=== PATIENT | female | born 1990 ===

== ENCOUNTER 2017-03-28 15:51 | Emergency (ER) | payer MEDICAID ==
[2017-03-28 15:52] VITALS: BMI 23.3
[2017-03-28 17:16] LABS: RBC URINE 1 /hpf (0-3); URINE BACTERIA RARE (<OCC); URINE BILIRUBIN NEGATIVE (NEGATIVE); URINE BLOOD NEGATIVE (NEGATIVE); URINE COLOR Straw (YELLOW); URINE GLUCOSE (UA) NORMAL (Normal); URINE KETONE NEGATIVE (NEGATIVE); URINE LEUKOCYTE ESTERASE NEG Leu/uL (Negative); URINE PROTEIN NEGATIVE (NEGATIVE); URINE UROBILINOGEN NORMAL mg/dL (0.2-1.0); WBC URINE 1 /hpf (0-5)
[2017-03-28 17:42] LABS: BASO % 0.5 % (0.0-2.0); EOS # 0.1 K/uL (0.0-0.7); EOS % 1.3 % (0.0-4.0); HEMATOCRIT 38.5 % (34.0-47.0); LYMPH # 2.8 K/uL (1.0-4.3); LYMPH % 41.5 % (20.0-40.0); MEAN CELL VOLUME 91.7 fL (81.0-99.0); MEAN CORPUSCULAR HEMOGLOBIN 31.1 pg (27.0-31.0); MEAN CORPUSCULAR HGB CONC 33.9 g/dL (33.0-37.0); MEAN PLATELET VOLUME 8.8 fL (7.2-11.7); MONO # 0.6 K/uL (0.0-0.8); MONO % 8.9 % (0.0-10.0); NRBC % 0.1 % (0.0-2.0); RED CELL DISTRIBUTION WIDTH 12.8 % (11.5-14.5); WHITE BLOOD COUNT 6.7 K/uL (4.8-10.8)
[2017-03-28 18:16] LABS: CHLORIDE 108 mmol/L (98-107); POTASSIUM 3.8 mmol/L (3.6-5.2); SODIUM 139 mmol/L (132-148)
[2017-03-28 18:18] LABS: BILIRUBIN,TOTAL 0.8 mg/dL (0.2-1.3); GFR AFRICAN-AMERICAN > 60
[2017-03-28 18:19] LABS: ALB/GLOB RATIO 1.3 (1.0-2.1); ALKALINE PHOSPHATASE 43 U/L (38-126); ALT/SGPT 13 U/L (9-52); AST/SGOT 23 U/L (14-36); BLOOD UREA NITROGEN 8 mg/dL (7-17); CALCIUM 8.9 mg/dl (8.6-10.4); CARBON DIOXIDE 21 mmol/L (22-30); GLUCOSE,RANDOM 90 mg/dL (65-105); TOTAL PROTEIN 7.5 g/dL (6.3-8.3)
--- NOTE | 2017-03-28 20:21 | US ---
EXAM: US First Trimester, Transabdominal US , Transvaginal CLINICAL HISTORY: 26 years old, female; Pain; complicated by abdominal or pelvic pain; Other: Not specified; Gestational age or lmp: [id number]; ; Prior surgery; Surgery type: ; Additional info: Pain. R/O ectopic. TECHNIQUE: Real-time transabdominal and transvaginal obstetrical ultrasound of the maternal pelvis and a first trimester with image documentation. Transvaginal imaging was used for better evaluation of the fetus and adnexa. COMPARISON: No relevant prior studies available. FINDINGS: Gestation: Small intrauterine gestational sac. Small yolk sac. No pole visualized. Uterus/cervix: Uterus measures 8.6 x 4.9 x 5.4 CM. No myometrial mass. Ovaries: Right ovary measures 3 x 2 x 2.5 CM. Left ovary measures 2.9 x 1.6 x 3.3 CM. No mass. Free fluid: Trace free fluid. IMPRESSION: 1. Ultrasound findings most consistent with an early intrauterine . Recommend clinical followup. 2. No adnexal masses.
[2017-03-28 21:10] VITALS: BP 103/69; PULSE 82; RESP 18; TEMP 98.6
[2017-03-28 21:12] VITALS: O2SAT 98
--- NOTE | 2017-03-28 21:12 | C.PDOC ---
Time Seen by Provider: 03/28/17 16:32 Chief Complaint (Nursing): Abdominal Pain History Per: Patient Onset/Duration Of Symptoms: Days (few), Intermittent Episodes Current Symptoms Are (Timing): Still Present Context: Other (Positive test at home) Severity: Moderate Location Of Pain/Discomfort: Suprapubic Quality Of Discomfort: Cramping Exacerbating Factors: None Alleviating Factors: None Additional History Per: Prior Records Abnormal Vaginal Bleeding: No Last Menstral Period: 02/19/2017 Past Medical History Reviewed: Historical Data, Nursing Documentation, Vital Signs Vital Signs: Last Vital Signs Temp 99.4 F 03/28/17 15:58 Pulse 67 03/28/17 15:58 Resp 20 03/28/17 15:58 BP 109/69 03/28/17 15:58 Pulse Ox 98 03/28/17 15:58 - Medical History PMH: Anemia ("IRON INFUSIONS DONE IN THE PAST"), Anxiety (NO MEDS.), Gastritis Surgical History: Endoscopy, - [facility] Procedures D & C NEC (12/17/13) DESTRUCT ABD WALL LESION (08/11/14) LAPAROSCOPY (12/17/13) Family History: States: Unknown Family Hx - Social History Hx Tobacco Use: No Hx Alcohol Use: No Hx Substance Use: No - Immunization History Hx Tetanus Toxoid Vaccination: No Hx Influenza Vaccination: No Hx Pneumococcal Vaccination: No Review Of Systems Except As Marked, All Systems Reviewed And Found Negative. Constitutional: Negative for: Fever, Weakness Cardiovascular: Negative for: Chest Pain Respiratory: Negative for: Shortness of Breath Gastrointestinal: Negative for: Vomiting Genitourinary: Positive for: Pelvic Pain. Negative for: Dysuria, Vaginal Discharge Musculoskeletal: Negative for: Neck Pain, Back Pain Skin: Negative for: Rash Neurological: Negative for: Weakness, Numbness, Seizures, Altered Mental Status Physical Exam - Physical Exam Appears: Non-toxic, No Acute Distress Skin: Normal Color, Warm, Dry, No Rash Head: Atraumatic, Normacephalic Eye(s): bilateral: PERRL, EOMI Neck: Normal ROM, Supple Cardiovascular: Rhythm Regular Respiratory: Normal Breath Sounds, No Accessory Muscle Use Gastrointestinal/Abdominal: Soft, No Tenderness Back: No CVA Tenderness Extremity: Normal ROM, No Deformity Neurological/Psych: Oriented x3, Normal Motor, Normal Sensation ED Course And Treatment - Laboratory Results Result Diagrams: 03/28/17 17:39 03/28/17 17:39 Lab Interpretation: No Acute Changes O2 Sat by Pulse Oximetry: 98 Pulse Ox Interpretation: Normal - CT Scan/US Pelvic US Other Rad Studies (CT/US): Read By Radiologist, Radiology Report Reviewed CT/US Interpretation: IMPRESSION: 1. Ultrasound findings most consistent with an early intrauterine . Recommend clinical followup. 2. No adnexal masses. Reassessment Condition: Improved Disposition Counseled Patient/Family Regarding: Studies Performed, Diagnosis, Need For Followup - Disposition Disposition: HOME/ ROUTINE Disposition Time: 21:13 Condition: STABLE Additional Instructions: Take Tylenol as needed for pain. Follow up an Marketing Research Analyst doctor for further evaluation and treatment. Return to the ER if you develop heavy bleeding, dizziness, fever, vomiting, worsening of symptoms or if you have any other concerns. Instructions: Abdominal Pain in (ED) - Clinical Impression Clinical Impression: Abdominal pain during in first trimester
== END 2017-03-28 21:18 | disposition home or self-care (01) ==
LOC: C.ER 15:51
DX: O26.891 Other specified pregnancy related conditions, first trimester (principal); R10.2 Pelvic and perineal pain; Z3A.00 Weeks of gestation of pregnancy not specified

== ENCOUNTER 2017-09-07 16:31 | Emergency (ER) | payer MEDICAID ==
[2017-09-07 16:38] VITALS: BMI 26.4
[2017-09-07] MEDS ORDERED: Lactated Ringer's 1,000 ML IV SCH ×2 (16:45→17:06)
[2017-09-07] MEDS ORDERED: Dextrose 5%/Lactated Ringer's 1,000 ML IV SCH (16:45)
[2017-09-07 17:05] LABS: BASO % 0.3 % (0.0-2.0); EOS % 0.1 % (0.0-4.0); HEMATOCRIT 35.8 % (34.0-47.0); LYMPH # 1.2 K/uL (1.0-4.3); MEAN CELL VOLUME 92.4 fL (81.0-99.0); MEAN CORPUSCULAR HEMOGLOBIN 31.6 pg (27.0-31.0); MEAN CORPUSCULAR HGB CONC 34.2 g/dL (33.0-37.0); MEAN PLATELET VOLUME 8.6 fL (7.2-11.7); MONO # 1.1 K/uL (0.0-0.8); MONO % 7.6 % (0.0-10.0); PLATELET COUNT 238 K/uL (130-400); RED CELL DISTRIBUTION WIDTH 12.5 % (11.5-14.5)
[2017-09-07 17:09] LABS: RBC URINE 86 /hpf (0-3); URINE BACTERIA OCC (<OCC); URINE BILIRUBIN NEGATIVE (NEGATIVE); URINE BLOOD 2+ (NEGATIVE); URINE COLOR Yellow (YELLOW); URINE GLUCOSE (UA) NORMAL (Normal); URINE KETONE NEGATIVE (NEGATIVE); URINE LEUKOCYTE ESTERASE 3+ Leu/uL (Negative); URINE PROTEIN NEGATIVE (NEGATIVE); URINE UROBILINOGEN NORMAL mg/dL (0.2-1.0); WBC URINE 33 /hpf (0-5)
[2017-09-07 17:10] LABS: ALB/GLOB RATIO 1.2 (1.0-2.1); ALKALINE PHOSPHATASE 80 U/L (38-126); ALT/SGPT 27 U/L (9-52); AST/SGOT 16 U/L (14-36); BILIRUBIN,TOTAL 0.9 mg/dL (0.2-1.3); BLOOD UREA NITROGEN 7 mg/dL (7-17); CALCIUM 8.5 mg/dl (8.6-10.4); CARBON DIOXIDE 21 mmol/L (22-30); CHLORIDE 102 mmol/L (98-107); GFR AFRICAN-AMERICAN > 60; GLUCOSE,RANDOM 74 mg/dL (65-105); POTASSIUM 3.5 mmol/L (3.6-5.2); SODIUM 131 mmol/L (132-148); TOTAL PROTEIN 6.9 g/dL (6.3-8.3)
[2017-09-07] MEDS ORDERED: Betamethasone Soluspan 30 mg/5mL Inj Susp IM STA (17:50)
[2017-09-07] MEDS ORDERED: Magnesium Sulfate 4 gm/100 ml 4 GM/100 ML BAG IVPB ONE (17:51)
[2017-09-07] MEDS ORDERED: Penicillin G Potassium 5 MU in Dextrose 5% In Water 50 ML IV ONE (17:52)
--- NOTE | 2017-09-07 18:00 | OBADHP ---
Datetime: 09/07/2017 17:51 Admit Comment, IP Provider: at 28weeks came with c/o ctxs started in am irrg, 05/25,no vb, lof,+ fm, no fever.no dysuria.no sex. obhx 1 x c/s [facility] den med pn all nkda psh c/s soch martínez ve closed at the time of arrival 1800 /-3 changed from previoys pt got ivf and procardia. still ctxs started mgso4 and betemethasone and pen [facility] called for transfer. spoke to Dr Bass agrees with transfer. r/a/b discussed with pateints.pt agrees. ambulabce caled for transfer. Pelvic Type - PN: Adequate Extremities - PN: Normal Abdomen - PN: Normal Back - PN: Normal Breast - PN: Not Done Lungs - PN: Normal Heart - PN: Normal Thyroid - PN: Not Done Neurologic - PN: Normal HEENT - PN: Normal General - PN: Normal FHR - Baseline A Provider: 170 Contraction Comments Provider: q1-4 Comments, ACOG Physical Exam: gravid,non tender ext no edemano calf ten ve /-3 IP Hx Assessment: The History has been Reviewed and is Current Vital Signs Provider: Reviewed; Within Normal Limits IP Chief Complaint: Uterine contractions NICHD Variability Prov Fetus A: Moderate 6-25bpm NICHD Decel Fetus A IP Provider: None Dilatation, Provider: 0 Effacement, Provider: 50 Station, Provider: -3 Genitourinary Exam: Normal DTRs - PN: Normal EGA AdmitDate IP: 28.4 IP Adm Impression: , intrauterine
--- NOTE | 2017-09-07 18:12 | OBHP ---
Datetime: 09/07/2017 17:51 Admit Comment, IP Provider: at 28weeks came with c/o ctxs started in am irrg, 05/25,no vb, lof,+ fm, no fever.no dysuria.no sex.pt was seen by her dr whitfield yesterday obhx 1 x c/s pmh den med pn all nkda psh c/s soch martínez ve closed at the time of arrival 1800 /3 changed from previoys pt got ivf and procardia. still ctxs started mgso4 and betemethasone and [facility] called for transfer. spoke to Dr Bass agrees with transfer. r/a/b discussed with pateints.pt agrees. ambuljenifer conner for transfer.
[2017-09-07 18:53] LABS: NEUTROPHIL 86 % (50-75); TOTAL CELLS COUNTED 100
[2017-09-07] MEDS ORDERED: cefTRIAXone 2 GM in Sodium Chloride 0.9% 50 ML IVPB ONE (19:00)
[2017-09-07 22:53] VITALS: BP 114/72; PULSE 123; RESP 18; TEMP 98; O2SAT 99
== END 2017-09-07 18:10 | disposition short-term general hospital (02) ==
LOC: C.EROB 16:31
DX: O47.03 False labor before 37 completed weeks of gestation, third trimester (principal); Z3A.28 28 weeks gestation of pregnancy
CPT/HCPCS: 80053; 81001; 85025; 96361; 96372; 96374; 99283; J0702; J2540; J7120

== ENCOUNTER 2018-03-16 08:15 | Day surgery (SDC) | payer OTHER ==
[2018-03-16] MEDS ORDERED: Morphine 10 mg/5 ml Oral Soln PO PRN (08:22)
[2018-03-16] MEDS ORDERED: Dextrose 5%/0.45% NS 1,000 ML IV SCH (08:30)
[2018-03-16] MEDS ORDERED: ceFAZolin 1 gm in NS 1 GM/100 ML BAG IVPB ONE (09:02)
[2018-03-16] MEDS ORDERED: Sodium Chloride 0.9% 500 ML IV ONE ×2 (09:10→10:15)
[2018-03-16] MEDS ORDERED: Propofol 10 mg/ml Inj (20 ML) ONE (09:16)
[2018-03-16] MEDS ORDERED: Midazolam 2 MG/2 ML VIAL ONE (09:16)
[2018-03-16] MEDS ORDERED: Succinylcholine Chloride 20 mg/ml Syr (5 ml) IV ONE (09:22)
[2018-03-16] MEDS ORDERED: HYDROmorphone 0.5 mg/0.5 ml ISec IVP PRN (09:49)
[2018-03-16 10:15] VITALS: O2SAT 100
[2018-03-16 11:20] VITALS: RESP 18
[2018-03-16 12:40] VITALS: BP 96/58; PULSE 75; TEMP 97.8
--- NOTE | 2018-03-16 21:10 | OP ---
PROCEDURE DATE: 03/16/2018 PREOPERATIVE DIAGNOSIS: Chronic tonsillitis. POSTOPERATIVE DIAGNOSIS: Chronic tonsillitis. PROCEDURE: Tonsillectomy. SURGEON: Cheng Castillo MD SIGNIFICANT FINDINGS: Chronically infected tonsils. DESCRIPTION OF PROCEDURE: The patient was brought into the room, placed in supine position. Anesthesia was initiated through an ET tube. The patient was draped in the usual manner. Mouth gag was placed in the oral cavity, opened and suspended on the Oleary manager line the usual manner. The right tonsil was grabbed and pulled medially. Incision was made in the anterior tonsillar pillar using a plasma knife. Dissections were done between tonsil and tonsillar fossa using a plasma knife until the tonsil was removed. Bleeding was controlled using plasma knife. Next, the other tonsil was grabbed and pulled medially. Incision was made in the anterior tonsillar pillar using plasma knife. Dissections were done between tonsil and tonsillar fossa using a plasma knife until the tonsil was removed. Bleeding was controlled using plasma knife. Both tonsillar beds were rubbed vigorously with a plasma knife wand. No bleeding was noted. Mouth gag was let down for 30 seconds, put back up, no bleeding was noted. The mouth gag was taken out and removed. The patient was taken off anesthesia and taken to the recovery room in a stable manner. Cheng Castillo MD
== END 2018-03-16 12:20 | disposition home or self-care (01) ==
LOC: C.SDS 08:15
PROVIDERS: ATTEND Otolaryngology
DX: J35.01 Chronic tonsillitis (principal)
CPT/HCPCS: 42826; 88304; J0690; J1170; J2250; J2405; J2704; J3010; J7030

== ENCOUNTER 2018-07-14 19:34 | Emergency (ER) | payer OTHER ==
[2018-07-14 19:35] VITALS: BMI 26.4
[2018-07-14 20:19] VITALS: BP 107/72; PULSE 63; RESP 16; TEMP 98.8; O2SAT 100
[2018-07-14] MEDS ORDERED: cefTRIAXone (Rocephin) 250 mg Inj IM STA (21:00)
[2018-07-14 21:02] LABS: HCG,QUALITATIVE URINE NEGATIVE (NEGATIVE)
[2018-07-14 21:03] LABS: SQUAMOUS EPITHIAL 3 /hpf (0-5); URINE BILIRUBIN NEGATIVE (NEGATIVE); URINE BLOOD NEGATIVE (NEGATIVE); URINE CLARITY Clear (Clear); URINE COLOR Yellow (YELLOW); URINE GLUCOSE (UA) NORMAL (Normal); URINE LEUKOCYTE ESTERASE NEG Leu/uL (Negative); URINE PROTEIN NEGATIVE (NEGATIVE); URINE UROBILINOGEN NORMAL mg/dL (0.2-1.0)
--- NOTE | 2018-07-14 21:29 | C.PDOC ---
History Of Present Illness 28 yo female c/o vaginal itching and discharge for one week. (+) pelvic cramping occasionally. Denies dysuria, urinary frequency, fever, back pain, n/v, abdominal pain, or change in BM. Pt admit to being sexually active though notes she uses condoms and has no new partners. (+) h/o chlamydia and herpes . She has tried Monistat x4 without relief- notes "it makes it worse". Time Seen by Provider: 07/14/18 20:19 Chief Complaint (Nursing): Female Genitourinary History Per: Patient History/Exam Limitations: no limitations Onset/Duration Of Symptoms: Days Current Symptoms Are (Timing): Still Present Past Medical History Vital Signs: Last Vital Signs Temp 98.8 F 07/14/18 20:13 Pulse 63 07/14/18 20:13 Resp 16 07/14/18 20:13 BP 107/72 07/14/18 20:13 Pulse Ox 100 07/14/18 20:13 - Medical History PMH: Anemia ("IRON INFUSIONS DONE IN THE PAST"), Gastritis Comment Only: Anxiety (NO MEDS.) Surgical History: Endoscopy, Tonsillectomy, - [facility] Procedures D & C NEC (12/17/13) DESTRUCT ABD WALL LESION (08/11/14) LAPAROSCOPY (12/17/13) Family History: States: Unknown Family Hx - Social History Hx Tobacco Use: No Hx Alcohol Use: Yes Hx Substance Use: No - Immunization History Hx Tetanus Toxoid Vaccination: No Hx Influenza Vaccination: No Hx Pneumococcal Vaccination: No Review Of Systems Except As Marked, All Systems Reviewed And Found Negative. Genitourinary: Positive for: Vaginal Discharge, Pelvic Pain Physical Exam - Physical Exam Appears: Well, Non-toxic, No Acute Distress Skin: Normal Color, Warm, Dry Head: Atraumatic, Normacephalic Eye(s): bilateral: Normal Inspection, EOMI Nose: Normal Oral Mucosa: Moist Neck: Normal, Normal ROM, Supple Chest: Symmetrical Cardiovascular: Rhythm Regular Respiratory: Normal Breath Sounds, No Accessory Muscle Use Gastrointestinal/Abdominal: Normal Exam, Soft, No Tenderness Back: Normal Inspection, No CVA Tenderness, No Vertebral Tenderness Pelvic: Normal External Exam, Vaginal Discharge (thick white/yellow discharge, not clumping ), No Cervical Motion Tenderness Extremity: Normal ROM Neurological/Psych: Oriented x3, Normal Speech Gait: Steady ED Course And Treatment O2 Sat by Pulse Oximetry: 100 Progress Note: Rocephin and Zithromycin ordered. Discussed strict follow up with OIL DISTRIBUTOR in 1-2 days. Discussed return precautions. Disposition - Disposition Disposition: HOME/ ROUTINE Disposition Time: 21:28 Condition: STABLE Additional Instructions: Follow up with your OIL DISTRIBUTOR in 1-2 days. Return to ER if symptoms persist or worsen. Prescriptions: Fluconazole [Diflucan] 150 mg PO DAILY #1 tab Metronidazole [Flagyl] 500 mg PO BID #14 tab Instructions: Bacterial Vaginosis (DC) Forms: [employer] (Danish) - Clinical Impression Clinical Impression: BV (bacterial vaginosis)
== END 2018-07-14 21:40 | disposition home or self-care (01) ==
LOC: C.ER 19:34
DX: N76.0 Acute vaginitis (principal)
CPT/HCPCS: 81001; 84703; 87086; 87491; 87591; 96372; 99283; J0696

== ENCOUNTER 2019-01-08 12:36 | Outpatient (CLI) | payer OTHER | END 2019-01-08 12:37 | disposition home or self-care (01) | LOC: C.LAB 12:36 | DX: R82.71 Bacteriuria (principal); D64.9 Anemia, unspecified; R10.2 Pelvic and perineal pain ==

== ENCOUNTER 2019-01-18 17:56 | Outpatient (CLI) | payer OTHER | END 2019-01-18 17:57 | disposition home or self-care (01) | LOC: C.LAB 17:56 | DX: R82.71 Bacteriuria (principal); R10.2 Pelvic and perineal pain ==

== ENCOUNTER 2019-01-21 12:06 | Outpatient (CLI) | payer OTHER | END 2019-01-21 12:07 | disposition home or self-care (01) | LOC: C.MRIC 12:07 | DX: R10.2 Pelvic and perineal pain (principal) ==